=== PATIENT | female | born 1960 | race Caucasian/White ===

== ENCOUNTER 2018-04-23 16:57 | Emergency (ER) | payer OTHER ==
[~2018-04-23] VITALS: Ht 171.4 cm; Wt 95.3 kg
[~2018-04-23 16:57] MED LIST: CELEBREX 200MG200 MG PO
[2018-04-23 17:41] LABS: ABSOLUTE BASOPHIL COUNT 0 /CUMM (0.0-0.2); ABSOLUTE EOSINOPHIL COUNT 0.1 /CUMM (0.0-0.7); ABSOLUTE GRANULOCYTE CT 4.7 /CUMM (1.4-6.5); ABSOLUTE MONOCYTE COUNT 0.6 /CUMM (0.10-0.60); BASOPHIL % 0.2 % (0.0-2.0); EOSINOPHIL % 1.9 % (0-5); GRANULOCYTE % 63.6 % (42.2-75.2); HEMATOCRIT 46.7 % (37-47); MEAN CORPUSCULAR HGB 30.3 PG (27.0-31.0); MEAN CORPUSCULAR HGB CONC 34.1 G/DL (33.0-37.0); MEAN CORPUSCULAR VOLUME 88.8 FL (81.0-99.0); MEAN PLATELET VOLUME 7.4 FL (7.4-10.4); PLATELET COUNT 322 /CUMM (130-400); RBC DISTRIBUTION WIDTH 13.6 % (11.5-14.5); RED BLOOD CELL CT 5.26 /CUMM (4.20-5.40); WHITE BLOOD CELL COUNT 7.3 /CUMM (4.8-10.8)
--- NOTE | 2018-04-23 18:32 | CT SCAN REPORT ---
EXAMINATION: CT HEAD WITHOUT CONTRAST CLINICAL INFORMATION: Headache. Question CVA or intracranial hemorrhage. COMPARISON: None TECHNIQUE: Contiguous axial imaging was performed from the skull base to vertex without intravenous administration of contrast. DLP: 597 mGy-cm FINDINGS: Mild diffuse commensurate prominence of ventricles and sulci is noted. No focal parenchymal lesions of the brain are identified. No intracranial hemorrhage, tumors or acute infarcts are visualized. The orbits and globes are partially included in the image [id number] and demonstrate no gross abnormalities. The visualized paranasal sinuses, mastoid air cells and middle ear cavities are clear. IMPRESSION: Normal unenhanced CT of the head. No intracranial hemorrhage, tumors or acute infarcts identified.
--- NOTE | 2018-04-23 18:37 | ED GENERAL ADULT ---
History of Present Illness General Chief Complaint: General Adult Stated Complaint: WANTS TO MAKE SURE SHE ISNT HAVING A STROKE Source: patient Exam Limitations: no limitations Vital Signs & Intake/Output Vital Signs & Intake/Output Vital Signs Date Time Temp Pulse Resp B/P B/P Pulse O2 O2 Flow FiO2 Mean Ox Delivery Rate 04/231 98.2 100 20 129/80 98 Room Air 04/23 1810 Room Air 04/23 1716 97.9 92 18 172/96 98 Room Air Allergies Coded Allergies: MDX - Ciprofloxacin (Ciprofloxacin) (RASH 03/12/11) MDX - Contrast Media, Iodine Relate (Contrast Media, Iodine Related) ( RESPIRATORY 03/12/11) MDX - Iodine (Iodine) (RESPIRATORY 03/12/11) MDX - Levofloxacin (From Levaquin) (RASH 03/12/11) Reconcile Medications Celecoxib (Celebrex) 200 MG CAP 1 TAB PO DAILY PRN PAIN Triage Note: PT STATES THAT SHE WAS OUT RUNNING ERRANDS WHEN SHE WENT TO GET BACK IN CAR STARTED TO SEE SPOTS IN HER EYES, FELT LIKE SHE WAS LOOKING THROUGH WATER. AND HAD DE PAIN , TEMPLES AND ACROSS HER FOREHEAD, SYMPTOMS LASTED ABOUT 15 -20 MINUTES, STILL COMPLAINS OF HEADACHE. Triage Nurses Notes Reviewed? yes Onset: Abrupt Duration: hour(s): (3.5), better, gone now Timing: single episode today Injury Environment: street Severity: mild, moderate Severity Numbers: 7 No Modifying Factors: none LMP (ages 10-50): unknown : No Patient currently breastfeeds: No HPI: 57 YEAR OLD FEMALE WITH HX OF OSTEOARTHRITIS PRESENTS FOR EVAL OF HEADACHES WITH VISION CHANGES. SHE REPROTS SHE WAS FEELING WELL UNTIL 3.5 HOURS PRIOR TO ARRIBVAL WHEN SHE DEVELOPED VISION CHANGES,. SHE DESCRIBES THESE CHANGES "LOOKING AT A BRUGHT LIGHT FOR A LONG TIME THEN LOOKING AWAY" THIS LASTED ABOUT 15 MINUTES THEN RESOLVED. SHE HAS A MILD GLOBAL HEADACHE NOW. NO HX OF SIMILAR HEADACHES. NO TRAUMA. NO SLURRED SPEECH, DIZZYINESS, CHEST PAIN SOB, ONE SIDED WEAKNESS. CURRENTLY SHE HAS A 3/10 HEADACHE DESCRIBED PRESSURE. NO NECK PAIN , N/V ABDOMINAL PAIN OR FEVER. NO EYE PAIN OR DISCHARGE. (Jeremy Garcia) Past History Travel History Traveled to [place] past 21 day No Medical History Any Pertinent Medical History? see below for history Neurological: NONE EENT: NONE Cardiovascular: NONE Respiratory: NONE Gastrointestinal: NONE Hepatic: NONE Renal: NONE Musculoskeletal: osteoarthritis Psychiatric: NONE Endocrine: NONE Surgical History Surgical History: L HIP REPLACEMENT Psychosocial History What is your primary language Malagasy Tobacco Use: Never used ETOH Use: denies use Illicit Drug Use: denies illicit drug use Family History Hx Contributory? No (Jeremy Garcia) Review of Systems Review of Systems Constitutional: Reports: no symptoms. EENTM: Reports: visual changes. Respiratory: Reports: no symptoms. Cardiovascular: Reports: no symptoms. GI: Reports: no symptoms. Genitourinary: Reports: no symptoms. Musculoskeletal: Reports: no symptoms. Skin: Reports: no symptoms. Neurological/Psychological: Reports: headache. Hematologic/Endocrine: Reports: no symptoms. Immunologic/Allergic: Reports: no symptoms. All Other Systems: Reviewed and Negative (Jeremy Garcia) Physical Exam Physical Exam General Appearance: well developed/nourished, no apparent distress, alert, awake Head: atraumatic, normal appearance Eyes: Bilateral: normal appearance, PERRL, EOMI. Ears, Nose, Throat: normal pharynx, normal ENT inspection, hearing grossly normal Neck: normal inspection, supple, full range of motion, NO CAROTID BRUITS Respiratory: normal breath sounds, chest non-tender, no respiratory distress Cardiovascular: regular rate/rhythm, normal peripheral pulses Peripheral Pulses: 2+ radial (R), 2+ radial (L) Gastrointestinal: soft, non-tender Back: normal inspection, normal range of motion, no vertebral tenderness Extremities: normal inspection, normal range of motion, no edema Neurologic/Psych: no motor/sensory deficits, awake, alert, oriented x 3, normal gait Skin: intact, normal color, warm/dry Lymphatic: no anterior cervical rosario Core Measures ACS in differential dx? No CVA/TIA Diagnosis: No Sepsis Present: No Sepsis Focused Exam Completed? No (Jeremy Garcia) Progress Differential Diagnoses I considered the following diagnoses in my evaluation of the patient: [MIGRAINE WITH AURA, CLUSTER HEADACE, DEYDRATION, CVA/TIA, ELECTRILYTE ABN, ACS, ARRYTHMIA ] Plan of Care: Orders Procedure Date/time Status TROPONIN LEVEL 04/23 2015 Complete EKG 04/23 2015 Active TROPONIN LEVEL 04/23 172 Complete MAGNESIUM 04/23 172 Complete HIGH SENSITIVITY CRP 04/23 172 Complete WESTERGREN SED RATE 081721 Complete COMPREHENSIVE METABOLIC PANEL 04/23 1722 Complete CBC WITHOUT DIFFERENTIAL 04/23 1722 Complete EKG 04/23 1722 Active Laboratory Tests 04/23/182011: Troponin I < 0.01 04/23/181724: Anion Gap 11, Estimated GFR > 60, BUN/Creatinine Ratio 17.8, Glucose 109 H, Calcium 9.9, Magnesium 2.1, Total Bilirubin 0.4, AST 47 H, ALT 68 H, Alkaline Phosphatase 111, Troponin I < 0.01, C-React Prot High Sens 4.5 H, Total Protein 7.7, Albumin 4.7, Globulin 3.0, Albumin/Globulin Ratio 1.6, CBC w Diff NO MAN DIFF REQ, RBC 5.26, MCV 88.8, MCH 30.3, MCHC 34.1, RDW 13.6, MPV 7.4, Gran % 63.6, Lymphocytes % 26.6, Monocytes % 7.7, Eosinophils % 1.9, Basophils % 0.2, Absolute Granulocytes 4.7, Absolute Lymphocytes 2.0, Absolute Monocytes 0.6, Absolute Eosinophils 0.1, Absolute Basophils 0, ESR Westergren 5 PT IS HERE FOR EVAL OF HEADACHE IWTH VISION CHANGES. VISION CHNAGES LASTED 15 MIN AND RESOLVED. SHE IS NEUROLOGIVALLY INTACT. HEAD CT NEGATIVE. PT WAS MEDICATED WITH TYLENOL AND IS FEELING BETTER. NO HEADACHE ON REVAL. EKG SHOWS NON-SPEFICI T WAVE CHANGES. A REPEAT EKG/TROP ORDERED.PT SIGNED OUT TO DR CYR PENDING REPEATS. Diagnostic Imaging: Viewed by Me: CT Scan. Discussed w/RAD: CT Scan. Radiology Impression: PATIENT: EMILEE WILLARD PRESENT AGE: 57 PATIENT ACCOUNT NO: [id number] : 60 LOCATION: [facility] ORDERING PHYSICIAN: Elizabeth AUGUSTIN SERVICE DATE: 04/23/18 EXAM TYPE: CAT - CT HEAD WO IV CONTRAST EXAMINATION: CT HEAD WITHOUT CONTRAST CLINICAL INFORMATION: Headache. Question CVA or intracranial hemorrhage. COMPARISON: None TECHNIQUE: Contiguous axial imaging was performed from the skull base to vertex without intravenous administration of contrast. DLP: 597 mGy-cm FINDINGS: Mild diffuse commensurate prominence of ventricles and sulci is noted. No focal parenchymal lesions of the brain are identified. No intracranial hemorrhage, tumors or acute infarcts are visualized. The orbits and globes are partially included in the image [id number] and demonstrate no gross abnormalities. The visualized paranasal sinuses, mastoid air cells and middle ear cavities are clear. IMPRESSION: Normal unenhanced CT of the head. No intracranial hemorrhage, tumors or acute infarcts identified. DICTATED BY: Gerhard Singleton MD DATE/TIME DICTATED:04/23/181822 HAY FARMER:RUTHIE DATE/TIME TRANSCRIBED:1822 CONFIDENTIAL, DO NOT COPY WITHOUT APPROPRIATE AUTHORIZATION. < Electronically signed in Other Vendor System> SIGNED BY: Gerhard Singleton MD 04/23/181831 Initial ED EKG: normal sinus rhythm, atrial premature complex, borderline t wave abn Hand-Off Endorsed To: Osman Cyr MD Endorsed Time: 1999 Pending: EKG, labs (Jeremy Garcia) Departure Departure Disposition: HOME OR SELF CARE Condition: Stable Clinical Impression Primary Impression: Headache Qualifiers: Headache type: unspecified Headache chronicity pattern: acute headache Intractability: not intractable Qualified Code: R51 - Headache Referrals: Mary ROSEN,Jean Claude Conte Patient Has No Primary Care Dr (PCP/Family) Hank ROSEN,Mitchel Jordan Additional Instructions: FOLLOW UP WITH YOUR PRIMARY DOCOTOR AND PROVIDED EYE DOCOTR AND NEUROLOGIST VALE. RETURN WITH ANY CONCERNS. Departure Forms: Customer Survey General Discharge Information (Jeremy Garcia) PA/REGENERATOR OPERATOR Co-Sign Statement Statement: ED Attending supervision documentation- I saw and evaluated the patient. I have also reviewed all the pertinent lab results and diagnostic results. I agree with the findings and the plan of care as documented in the PA's/REGENERATOR OPERATOR's documentation. x I have reviewed the ED Record and agree with the PA's/REGENERATOR OPERATOR's documentation. [] Additions or exceptions (if any) to the PAs/REGENERATOR OPERATOR's note and plan are summarized below: [] (Osman Cyr MD) Critical Care Note Critical Care Note Critical Care Time: non-applicable (Jeremy Garcia)
[2018-04-23 21:31] VITALS: BP 129/80
== END 2018-04-23 21:35 ==
LOC: ERH 16:57
PROVIDERS: Physician Assistant
DX: R51 Headache (principal)
CPT/HCPCS: 93005; 93010